=== PATIENT | male | born 1955 | race African-American/Black ===

== ENCOUNTER 2021-10-27 06:02 | Emergency (ER) | payer BC, MEDICAID ==
[~2021-10-27] VITALS: Ht 185.4 cm; Wt 81.0 kg
[2021-10-27] MEDS ORDERED: MORPHINE SULFATE 4 MG/ML CPJ (NOT FOR IM USE) IV ONE (06:45)
[2021-10-27 07:23] LABS: CHLORIDE 106 mEq/L (98-107)
[2021-10-27 07:26] LABS: BASOPHILS % 0.3 % (0.0-2.0); EOSINOPHILS % 1.2 % (0.0-5.0); HEMATOCRIT. 39.4 % (42.0-52.0); HEMOGLOBIN. 13.3 g/dL (14.0-18.0); LYMPHOCYTES % 43.3 % (20.0-50.0); MEAN CORPUSCULAR HEMOGLOBIN 27.3 pg (28.0-32.0); MEAN CORPUSCULAR VOLUME 81.2 fL (80.0-94.0); MEAN PLATELET VOLUME 7.4 fl (7.4-10.4); MONOCYTES % 6.5 % (2.0-8.0); NEUTROPHILS % 48.7 % (40.0-76.0); PLATELET 186 x1000/uL (130-400); RED BLOOD CELL COUNT 4.85 mill/uL (4.7-6.1); RED CELL DISTRIBUTION WIDTH 14.7 % (11.6-14.6)
[2021-10-27 07:35] VITALS: BP 146/88
[2021-10-29] MEDS ORDERED: HYDR-4001 PO (02:51)
[2021-10-29] MEDS ORDERED: FAMO-135 MT (13:55)
[2021-10-29] MEDS ORDERED: ASPI-1497 MT (13:55)
[2021-10-29] MEDS ORDERED: ATOR20TA PO (13:55)
== END 2021-10-27 08:05 | disposition left against medical advice (07) ==
LOC: ER 06:02
DX: R07.89 Other chest pain (principal); Z20.822 Contact with and (suspected) exposure to COVID-19; E11.9 Type 2 diabetes mellitus without complications; Z71.89 Other specified counseling
CPT/HCPCS: 36415; 71045; 80053; 83880; 84484; 85025; 87426; 93005; 96374; 99285; J2270

== ENCOUNTER 2021-10-27 13:00 | Emergency (ER) | payer BC, MEDICAID ==
[~2021-10-27] VITALS: Ht 185.4 cm; Wt 65.0 kg
[2021-10-27 13:15] VITALS: BP 135/76
[2021-10-29] MEDS ORDERED: HYDR-4001 PO (02:51)
[2021-10-29] MEDS ORDERED: ASPI-1497 MT (13:55)
[2021-10-29] MEDS ORDERED: FAMO-135 MT (13:55)
[2021-10-29] MEDS ORDERED: ATOR20TA PO (13:55)
== END 2021-10-27 16:55 | disposition left against medical advice (07) ==
LOC: ER 13:03
DX: Z53.21 Procedure and treatment not carried out due to patient leaving prior to being seen by health care provider (principal); R07.9 Chest pain, unspecified
CPT/HCPCS: 93005

== ENCOUNTER 2021-11-08 03:00 | Emergency (ER) | payer BC, MEDICAID ==
[~2021-11-08] VITALS: Ht 175.3 cm; Wt 69.0 kg
[~2021-11-08 03:00] MED LIST: ASPI-1497 MT; ATOR20TA PO; FAMO-135 MT
[2021-11-08] MEDS ORDERED: ASPIRIN 325MG EC TABLET PO ONE (03:15)
[2021-11-08 04:06] LABS: BASOPHILS % 0.5 % (0.0-2.0); EOSINOPHILS % 0.9 % (0.0-5.0); HEMATOCRIT. 37.4 % (42.0-52.0); HEMOGLOBIN. 12.5 g/dL (14.0-18.0); LYMPHOCYTES % 51.7 % (20.0-50.0); MEAN CORPUSCULAR HEMOGLOBIN 27.2 pg (28.0-32.0); MEAN PLATELET VOLUME 7.3 fl (7.4-10.4); MONOCYTES % 7.3 % (2.0-8.0); NEUTROPHILS % 39.6 % (40.0-76.0); PLATELET 181 x1000/uL (130-400); RED BLOOD CELL COUNT 4.62 mill/uL (4.7-6.1); RED CELL DISTRIBUTION WIDTH 14.5 % (11.6-14.6)
[2021-11-08 04:17] LABS: CHLORIDE 104 mEq/L (98-107)
[2021-11-08 07:39] VITALS: BP 153/71
== END 2021-11-08 08:15 | disposition short-term general hospital (02) ==
LOC: ER 03:00
DX: R07.89 Other chest pain (principal); R06.02 Shortness of breath; Z20.822 Contact with and (suspected) exposure to COVID-19; D64.9 Anemia, unspecified; E11.9 Type 2 diabetes mellitus without complications
CPT/HCPCS: 36415; 71045; 80053; 82962; 83880; 84484; 85025; 87426; 93005; 99285

== ENCOUNTER 2021-11-11 07:10 | Emergency (ER) | payer BC, MEDICAID ==
[~2021-11-11] VITALS: Ht 182.9 cm; Wt 61.0 kg
[2021-11-11 07:59] LABS: BG BASE EXCESS 1.4 mmol/L (-2.0-2.0); BG CARBOXYHEMOGLOBIN 0.9 % (0.5-1.5); BG DEOXYHEMOGLOBIN 3.1 % (0.0-5.0); BG FRACTION INSPIRED OXYGEN 21; BG HCO3 ACT 26.1 mmol/L (22.0-26.0); BG METHEMOGLOBIN 0.3 % (0.0-1.5); BG OXYGEN SATURATION 96.9 % (92.0-98.5); BG OXYHEMOGLOBIN 95.7 % (94.0-97.0); BG PCO2 41.5 mmHg (35.0-45.0); BG PH 7.416 (7.350-7.450); BG PO2 89.3 mmHg (75.0-100.0); BG SAMPLE SITE RIGHT RADIAL; BG TOTAL HEMOGLOBIN 13.4 g/dL (12.0-18.0); BG VENT MODE ROOM AIR
[2021-11-11 08:08] VITALS: BP 138/71
[2021-11-11 08:22] LABS: BASOPHILS % 0.5 % (0.0-2.0); EOSINOPHILS % 1.1 % (0.0-5.0); HEMATOCRIT. 39.4 % (42.0-52.0); HEMOGLOBIN. 13.2 g/dL (14.0-18.0); LYMPHOCYTES % 44.7 % (20.0-50.0); MEAN CORPUSCULAR VOLUME 80.5 fL (80.0-94.0); MEAN PLATELET VOLUME 7.4 fl (7.4-10.4); MONOCYTES % 8.4 % (2.0-8.0); NEUTROPHILS % 45.3 % (40.0-76.0); PLATELET 187 x1000/uL (130-400); RED BLOOD CELL COUNT 4.89 mill/uL (4.7-6.1); RED CELL DISTRIBUTION WIDTH 14.4 % (11.6-14.6)
[2021-11-11 08:28] LABS: CHLORIDE 103 mEq/L (98-107)
== END 2021-11-11 10:10 | disposition home or self-care (01) ==
LOC: ER 07:10
DX: R06.02 Shortness of breath (principal); E11.9 Type 2 diabetes mellitus without complications; Z98.890 Other specified postprocedural states
CPT/HCPCS: 36415; 36600; 80053; 82375; 82805; 82962; 85025; 93005; 99284